=== PATIENT | male | born 1945 | race Native Hawaiian/Other Pacific Islander ===

== ENCOUNTER 2018-04-07 19:17 | Emergency (ER) | payer OTHER ==
[~2018-04-07] VITALS: Ht 182.9 cm; Wt 86.2 kg
[2018-04-07 19:10] VITALS: TEMP 97.3
== END 2018-04-07 22:10 | disposition expired ==
LOC: ED 19:17
PROC: 5A12012 Performance of Cardiac Output, Single, Manual (ICD-10-PCS; principal; 2018-04-07)
PROC: 0T9B70Z Drainage of Bladder with Drainage Device, Via Natural or Artificial Opening (ICD-10-PCS; 2018-04-07)
DX: I46.9 Cardiac arrest, cause unspecified (principal); C64.1 Malignant neoplasm of right kidney, except renal pelvis; C78.02 Secondary malignant neoplasm of left lung; C78.01 Secondary malignant neoplasm of right lung
CPT/HCPCS: 51702; 92950; 93005; 96365; 96374; 96375; 96376; 99291; J0171; J3490